=== PATIENT | male | born 1995 | race Caucasian/White ===

== ENCOUNTER 2023-04-10 02:09 | Observation (INO) | payer OTHER ==
[2023-04-10 03:04] LABS: Basophils % (A) 0 %; Eosinophils # (A) 0.1 k/uL (0-0.7); Eosinophils % (A) 1 %; HCT 43.4 % (39.0-53.0); Lymphocytes # (A) 1.1 k/uL (1.0-4.8); Lymphocytes % (A) 9 %; MCH 28.6 pg (25.0-35.0); MCHC 34.7 g/dL (31.0-37.0); MCV 82.5 fL (80.0-100.0); Mean Platelet Volume 7.9; Monocytes # (A) 1.4 k/uL (0-1.0); Monocytes % (A) 11 %; Neutrophils % (A) 79 %; Platelet Count 217 k/uL (150-450); RBC 5.26 m/uL (4.30-5.90); RDW 12.8 % (11.5-15.5); WBC 12.8 k/uL (3.8-10.6)
--- NOTE | 2023-04-10 03:08 | ED ---
General Adult HPI - General Source: EMS Mode of arrival: EMS <Binh Bagley - Last Filed: 04/10/23 04:04> <Paul Nicholson - Last Filed: 04/10/23 08:44> - General Chief complaint: Overdose Stated complaint: Overdose Time Seen by Provider: 04/10/23 02:24 - History of Present Illness Initial comments: 27-year-old male with a past medical history significant for anxiety and depression presenting to the ED with a chief complaint of overdose. Per patient, took approximately 20 Cymbalta at 10 PM. Alerted his mother at approximately 12 AM. Per mother, shortly after this patient appeared to have seizure-like activity which lasted approximately a minute. As of now patient reports feeling fatigued. Denies chest pain, shortness of breath, palpitations, tinnitus, abdominal pain, nausea, vomiting. No other complaints at this time. Patient took approximately 20. His dosage is 60 mg. (Binh Bagley) - Related Data Allergies Allergy/AdvReac Type Severity Reaction Status Date / Time No Known Allergies Allergy Verified 11/10/22 14:12 Review of Systems ROS Other: All systems not noted in ROS Statement are negative. <Binh Bagley - Last Filed: 04/10/23 04:04> ROS Other: All systems not noted in ROS Statement are negative. <Paul Nicholson - Last Filed: 04/10/23 08:44> ROS Statement: Those systems with pertinent positive or pertinent negative responses have been documented in the HPI. Past Medical History Past Medical History: No Reported History History of Any Multi-Drug Resistant Organisms: None Reported Past Surgical History: No Surgical Hx Reported Past Psychological History: No Psychological Hx Reported Smoking Status: Never smoker Past Alcohol Use History: None Reported Past Drug Use History: Marijuana <Binh Bagley - Last Filed: 04/10/23 04:04> General Exam General appearance: alert, in no apparent distress Eye exam: Present: PERRL ENT exam: Present: other (Airway patent) Neck exam: Present: normal inspection, other Respiratory exam: Present: normal lung sounds bilaterally Cardiovascular Exam: Present: tachycardia GI/Abdominal exam: Present: soft (No tenderness to palpation. No rebound guarding or rigidity.) Neurological exam: Present: alert, oriented X3 Skin exam: Present: warm, dry <Binh Bagley Last Filed: 04/10/23 04:04> Course Vital Signs 04/10/23 04/10/23 04/10/23 02:11 03:00 04:30 Temperature 97.4 F L Pulse Rate 131 H 104 H 112 H Respiratory 18 20 17 Rate Blood Pressure 107/51 105/62 108/71 O2 Sat by Pulse 94 L 98 95 Oximetry 04/10/23 04/10/23 04/10/23 05:00 05:30 06:00 Temperature Pulse Rate 108 H 98 105 H Respiratory 18 16 17 Rate Blood Pressure 123/71 112/74 123/79 O2 Sat by Pulse 96 96 96 Oximetry Medical Decision Making - Lab Data Result diagrams: 04/10/23 02:49 04/10/23 02:49 <Binh Bagley - Last Filed: 04/10/23 04:04> - Lab Data Result diagrams: 04/10/23 02:49 04/10/23 02:49 <Paul Nicholson - Last Filed: 04/10/23 08:44> - Medical Decision Making Was pt. sent in by a medical professional or institution (, PA, TRANSFUSION NURSE, urgent care, hospital, or shelter...) When possible be specific @ -No Did you speak to anyone other than the patient for history (EMS, parent, family, police, friend...)? What history was obtained from this source @ -Spoke to both patient and family for history. For further details please see HPI. Did you review nursing and triage notes (agree or disagree)? Why? @ -I reviewed and agree with nursing and triage notes Were old charts reviewed (outside hosp., previous admission, EMS record, old EKG, old radiological studies, urgent care reports/EKG's, shelter records)? Report findings @ -No old charts were reviewed Differential Diagnosis (chest pain, altered mental status, abdominal pain women, abdominal pain men, vaginal bleeding, weakness, fever, dyspnea, syncope, headache, dizziness, GI bleed, back pain, seizure, CVA, palpatations, mental health, musculoskeletal)? @ -Differential Mental Health Depression, anxiety, bipolar, psychosis, schizophrenia, borderline personality, situational depression, adjustment disorder, behavioral disorder, brain tumor, malingering, substance abuse, encephalopathy, medication reaction, dementia, hypothyroidism, degenerative neurologic disorder, lupus.... This is not meant to be all-inclusive list EKG interpreted by me (3pts min.). @ -As above X-rays interpreted by me (1pt min.). @ -None done CT interpreted by me (1pt min.). @ -None done U/S interpreted by me (1pt. min.). @ -None done What testing was considered but not performed or refused? (CT, X-rays, U/S, labs)? Why? @ -None What meds were considered but not given or refused? Why? @ -None Did you discuss the management of the patient with other professionals (professionals i.e. , PA, TRANSFUSION NURSE, lab, RT, psych nurse, social welfare research worker, market relationship manager, teacher, [place] police officer, geriatric case manager)? Give summary @ -Discussed with poison control. Advised to expect nausea vomiting tachycardia and possible seizures. After discussing laboratory results obtained at this time report no need for additional testing at this time unless patient has any changes. Advising monitoring for 6 to 8 hours from time of ingestion. Was smoking cessation discussed for >3mins.? @ -No Was critical care preformed (if so, how long)? @ -No Were there social determinants of health that impacted care today? How? (Homelessness, low income, unemployed, alcoholism, drug addiction, transportation, low edu. Level, literacy, decrease access to med. care, halfway, rehab)? @ -No Was there de-escalation of care discussed even if they declined (Discuss DNR or withdrawal of care, Hospice)? DNR status @ -No What co-morbidities impacted this encounter? (DM, HTN, Smoking, COPD, CAD, Cancer, CVA, ARF, Chemo, Hep., AIDS, mental health diagnosis, sleep apnea, morbid obesity)? @ -Anxiety/depression Was patient admitted / discharged? Hospital course, mention meds given and rout e, prescriptions, significant lab abnormalities, going to OR and other pertinent info. @ -Admission 27-year-old male presents to the ED status post ingestion of approximately twenty 60 mg duloxetine at 10 PM. Laboratory studies reviewed showing a elevated white blood cell count at 12.8. Chemistry panel largely unremarkable. Salicylate less than 1, acetaminophen less than 10, serum alcohol less than 10. Urine drug screen pending at this time. After discussion with poison control recommend observation 6 to 8 hours after ingestion. EKG at this time shows a sinus tachycardia with nonspecific changes. On exam patient is somnolent however arousable and answers questions appropriately. Airway patent. Patient will be admitted with consult to psychiatry. Undiagnosed new problem with uncertain prognosis? @ -No Drug Therapy requiring intensive monitoring for toxicity (Heparin, Nitro, Insulin, Cardizem)? @ -No Were any procedures done? @ -No Diagnosis/symptom? @ -Duloxetine overdose Acute, or Chronic, or Acute on Chronic? @ -Acute Uncomplicated (without systemic symptoms) or Complicated (systemic symptoms)? @ -Complicated Side effects of treatment? @ -No Exacerbation, Progression, or Severe Exacerbation? @ -No Poses a threat to life or bodily function? How? (Chest pain, [place], [place], pneumonia, PE, COPD, DKA, ARF, appy, cholecystitis, CVA, Diverticulitis, Homicidal, Suicidal, threat to staff... and all critical care pts) @ -Possibly, overdose and suicidal ideation (Binh Bagley) - Lab Data Lab Results 04/10/23 04/10/23 Range/Units 02:49 02:49 WBC 12.8 H (3.8-10.6) k/uL RBC 5.26 (4.30-5.90) m/uL Hgb 15.0 (13.0-17.5) gm/dL Hct 43.4 (39.0-53.0) % MCV 82.5 (80.0-100.0) fL MCH 28.6 (25.0-35.0) pg MCHC 34.7 (31.0-37.0) g/dL RDW 12.8 (11.5-15.5) % Plt Count 217 (150-450) k/uL MPV 7.9 Neutrophils % 79 % Lymphocytes % 9 % Monocytes % 11 % Eosinophils % 1 % Basophils % 0 % Neutrophils # 10.0 H (1.3-7.7) k/uL Lymphocytes # 1.1 (1.0-4.8) k/uL Monocytes # 1.4 H (0-1.0) k/uL Eosinophils # 0.1 (0-0.7) k/uL Basophils # 0.0 (0-0.2) k/uL Sodium 136 L (137-145) mmol/L Potassium 3.8 (3.5-5.1) mmol/L Chloride 107 (98-107) mmol/L Carbon Dioxide 19 L (22-30) mmol/L Anion Gap 10 mmol/L BUN 12 (9-20) mg/dL Creatinine 0.99 (0.66-1.25) mg/dL Est GFR (CKD-EPI)AfAm >90 (>60 ml/min/1.73 sqM) Est GFR (CKD-EPI)NonAf >90 (>60 ml/min/1.73 sqM) Glucose 153 H (74-99) mg/dL Calcium 8.7 (8.4-10.2) mg/dL Total Bilirubin 0.5 (0.2-1.3) mg/dL AST 36 (17-59) U/L ALT 57 H (4-49) U/L Alkaline Phosphatase 50 (38-126) U/L Total Protein 6.5 (6.3-8.2) g/dL Albumin 3.8 (3.5-5.0) g/dL Salicylates <1.0 mg/dL Acetaminophen <10.0 ug/mL Serum Alcohol <10 mg/dL - EKG Data EKG Comments: EKG shows a sinus tach at [address] and T wave changes. WV 150, QRS 96, QT/QTc 351/425. (Binh Bagley) Disposition Time of Disposition: 04:04 <Binh Bagley - Last Filed: 04/10/23 04:04> <Paul Nicholson - Last Filed: 04/10/23 08:44> Clinical Impression: Overdose, Suicidal ideation Disposition: ADMITTED IP TO THIS HOSP Condition: Fair Referrals: None,Stated [REFERRING] - 1-2 days
[2023-04-10 03:15] LABS: ALT 57 U/L (4-49); AST 36 U/L (17-59); Acetaminophen <10.0 ug/mL; African American GFR (CKD) >90 (>60 ml/min/1.73 sqM); Albumin 3.8 g/dL (3.5-5.0); Alcohol <10 mg/dL; Alkaline Phosphatase 50 U/L (38-126); Anion Gap 10 mmol/L; Blood Urea Nitrogen 12 mg/dL (9-20); Calcium 8.7 mg/dL (8.4-10.2); Carbon Dioxide 19 mmol/L (22-30); Chloride 107 mmol/L (98-107); Glucose 153 mg/dL (74-99); Non-African American GFR(CKD) >90 (>60 ml/min/1.73 sqM); Potassium 3.8 mmol/L (3.5-5.1); Salicylate <1.0 mg/dL; Sodium 136 mmol/L (137-145); Total Bilirubin 0.5 mg/dL (0.2-1.3); Total Protein 6.5 g/dL (6.3-8.2)
[2023-04-10] MEDS: SODIUM CHLORIDE 0.9% 1,000 ML IV STA (03:41)
[2023-04-10] MEDS: levETIRAcetam 500 MG TAB PO STA (03:41)
[2023-04-10] MEDS ORDERED: NALOXONE 0.4 MG/ML 1 ML VIAL IV PRN (04:31)
[2023-04-10] MEDS ORDERED: ONDANSETRON 4 MG/2 ML VIAL IVP PRN (04:31)
[2023-04-10 09:04] LABS: Appearance,Urine Clear (Clear); Bilirubin,Urine Negative (Negative); Blood,Urine Negative (Negative); Color,Urine Colorless; Glucose,Urine (UA) 1+ (Negative); Ketones,Urine Negative (Negative); Leukocyte Esterase,Urine Negative (Negative); Nitrite,Urine Negative (Negative); PH, Urine 5.5 (5.0-8.0); Protein,Urine Trace (Negative); Specific Gravity,Urine 1.015 (1.001-1.035); Urobilinogen,Urine <2.0 mg/dL (<2.0)
[2023-04-10 09:26] LABS: Amphetamine Screen,Urine Not Detected (NotDetected); Barbiturate Screen,Urine Not Detected (NotDetected); Benzodiazepines Screen,Urine Not Detected (NotDetected); Cocaine Screen,Urine Not Detected (NotDetected); Methadone Screen, Urine Not Detected (NotDetected); Opiate Screen,Urine Not Detected (NotDetected); Oxycodone Screen, Urine Not Detected (NotDetected); Phencyclidine Screen,Urine Not Detected (NotDetected); Tricyclic Antidepressant,Urine Not Detected (NotDetected); Urn Cannabinoid Scrn Detected (NotDetected)
--- NOTE | 2023-04-10 14:39 | P.HPIM ---
History of Present Illness Patient is 27-year-old male is admitted for suicidal ideation and duloxetine overdose, took 20 pills of duloxetine. Patient presently does not have any QT prolongation at this time patient took this medication around midnight April 10, 2023 patient apparently had a seizure-like activity which lasted for a minute after that denied any tinnitus. Urine drug screen is positive for marijuana. Patient had sinus tachycardia on admission which resolved at this time REVIEW OF SYSTEMS: CONSTITUTIONAL: No fever, no malaise, no fatigue. HEENT: No recent visual problems or hearing problems. Denied any sore throat. CARDIOVASCULAR: No chest pain, orthopnea, PND, no palpitations, no syncope. PULMONARY: No shortness of breath, no cough, no hemoptysis. GASTROINTESTINAL: No diarrhea, no nausea, no vomiting, no abdominal pain. NEUROLOGICAL: No headaches, no weakness, no numbness. HEMATOLOGICAL: Denies any bleeding or petechiae. GENITOURINARY: Denies any burning micturition, frequency, or urgency. MUSCULOSKELETAL/RHEUMATOLOGICAL: Denies any joint pain, swelling, or any muscle pain. ENDOCRINE: Denies any polyuria or polydipsia. The rest of the 14-point review of systems is negative. PHYSICAL EXAMINATION: GENERAL: The patient is alert and oriented x3, not in any acute distress. Well developed, well nourished. HEENT: Pupils are round and equally reacting to light. EOMI. No scleral icterus. No conjunctival pallor. Normocephalic, atraumatic. No pharyngeal erythema. No thyromegaly. CARDIOVASCULAR: S1 and S2 present. No murmurs, rubs, or gallops. PULMONARY: Chest is clear to auscultation, no wheezing or crackles. ABDOMEN: Soft, nontender, nondistended, normoactive bowel sounds. No palpable organomegaly. MUSCULOSKELETAL: No joint swelling or deformity. EXTREMITIES: No cyanosis, clubbing, or pedal edema. NEUROLOGICAL: Gross neurological examination did not reveal any focal deficits. SKIN: No rashes. Assessment and plan -Duloxetine overdose will be monitored overnight for any heart rhythm abno rmalities. Patient is alert awake at this time no evidence of seizures at this time -Leukocytosis reactive secondary to drug overdose -Depression suicidal ideation patient will need a sitter and psychiatry evaluation DVT prophylaxis: Early ambulation Past Medical History Past Medical History: No Reported History History of Any Multi-Drug Resistant Organisms: None Reported Past Surgical History: No Surgical Hx Reported Past Psychological History: No Psychological Hx Reported Smoking Status: Never smoker Past Alcohol Use History: None Reported Past Drug Use History: Marijuana Medications and Allergies Home Medications Medication Instructions Recorded Confirmed Type No Known Home Medications 04/10/23 04/10/23 History Allergies Allergy/AdvReac Type Severity Reaction Status Date / Time No Known Allergies Allergy Verified 04/10/23 10:42 Physical Exam Vitals: Vital Signs Temp Pulse Resp BP Pulse Ox 04/10/23 12:00 92 18 113/75 97 04/10/23 10:18 89 18 107/71 98 04/10/23 06:00 105 H 17 123/79 96 04/10/23 05:30 98 16 112/74 96 04/10/23 05:00 108 H 18 123/71 96 04/10/23 04:30 112 H 17 108/71 95 04/10/23 03:00 104 H 20 105/62 98 04/10/23 02:11 97.4 F L 131 H 18 107/51 94 L Intake and Output 04/09/23 04/10/23 04/10/23 22:59 06:59 14:59 Other: Weight 120.202 kg Results CBC & Chem 7: 04/10/23 02:49 04/10/23 02:49 Labs: Abnormal Lab Results - Last 24 Hours (Table) 04/10/23 04/10/23 04/10/23 Range/Units 02:49 02:49 08:30 WBC 12.8 H (3.8-10.6) k/uL Neutrophils # 10.0 H (1.3-7.7) k/uL Monocytes # 1.4 H (0-1.0) k/uL Sodium 136 L (137-145) mmol/L Carbon Dioxide 19 L (22-30) mmol/L Glucose 153 H (74-99) mg/dL ALT 57 H (4-49) U/L Urine Protein Trace H (Negative) Urine Glucose (UA) 1+ H (Negative) U Marijuana (THC) Screen Detected H (NotDetected)
--- NOTE | 2023-04-10 22:25 | P.CN ---
Psychiatric Consult - . Consult date: 04/10/23 Consult:: Reason for Consult/Chief Complaint: Psychiatric evaluation for a patient who overdosed on Cymbalta. History of Present Illness: The patient is a 27-year-old male with a psychiatric history of depression and anxiety. He was brought to the hospital after overdosing on Cymbalta. The evaluation took place while he was lying in bed in the emergency department at [facility]. The patient reported that he overdosed on Cymb april around midnight in a suicide attempt, stating, "I was excited to be ." The patient expressed feelings of depression and sadness throughout his life but noted a worsening of his depression over the last month, which he attributes to financial problems. He endorsed symptoms of isolation, hopelessness, and intermittent suicidal ideation. The patient had been consuming cannabis gummies in an attempt to alleviate depression and anxiety, which he claims altered his perception and fueled a fascination with that began approximately six months ago. He was terminated from his last job, exacerbating feelings of hopelessness and suicidal ideation. The patient was diagnosed with depression three years ago, and his most recent antidepressant medication was Cymbalta. He reported ingesting approximately 20 pills of Cymbalta, either 50mg or 60mg. Additionally, he reported experiencing sleep disturbances, including difficulty falling and staying asleep or sleeping for extended periods, as well as a significant decrease in appetite. Regarding anxiety, the patient reported severe unexplained worry, racing thoughts, and panic attacks accompanied by chest discomfort and a rapid heartbe at. He described episodes of elevated mood, increased energy levels, and excitement over minor matters, along with decreased need for sleep, but he could not recall these symptoms lasting more than a few hours or a maximum of one day. The patient denied psychotic symptoms, including hallucinations, paranoid ideation, or delusions, and he reported no instances of self-injurious behavior. When asked about previous suicide attempts, the patient responded, "I feel that I have, but I don't remember specifically." Past psychiatric history: Psychiatric diagnosis: Depression, and anxiety disorders. Previous psychiatric hospitalizations: None reported. Previous suicidal attempts: "I feel that I have, but I don't remember specifically." Previous/ current outpatient psychiatric treatment: None. He reported was getting prescription for antidepressant from his PCP. Substance use history: the patient reports ingesting marijuana games regularly. He occasionally smokes marijuana. He denies drinking alcohol or smoking cigarettes. Social/ Developmental History: The patient currently lives with his mother, grandmother, and stepfather. He's currently unemployed after he lost his job six months ago. He used to do factory work. He completed high school diploma. Patient has never been and has no children. Family Psychiatric History: Depression and anxiety and depression run at both sides of his family. Paternal grandfather committed suicide. Maternal uncle has substance use disorder problems. Mental Status Examination: Appearance: Appears stated age, disheveled, above average body built, with long alfaro. Gait/ posture: Gait was not assessed. Attitude and Behavior: Not fully Engaged, partially cooperative, poor eye contact during course of interview. Motor Activity: Decreased psychomotor activity. Speech: Slow rate, normal rhythm, articulation, and prosody. None pressured. Mood: " depressed Affect: Restricted Thought form: linear, and relevant, not incoherent and no clang association. Thought content: Bizarre but no delusions, reported suicidal ideation, Denies homicidal thoughts, intentions, or plans. Perception: Denies any auditory/ visual or tactile hallucinations. Attention: No impairment. Orientation: Oriented to time, place, person, and situation. Insight & Judgment: Poor Impulse control: poor Assessment: Major depressive disorder, recurrent, with mixed features. Ruled out bipolar disorder. Recommendation: Disposition/Follow-up: Addressed and ensured patient's safety, patient does meet the criteria for psychiatric hospitalization. Patient has had a suicidal attempt last night, and he is actively suicidal and unpredictable. Please transfer the patient to inpatient psychiatric level of care after achieving medical stabilization. Place the patient on 1:1 observation for safety. Medication management: Start the patient on Abilify 5 milligrams daily for mood stabilization. Brief supportive psychotherapy and psychoeducation was provided to the patient. Discussed the treatment plan with the requesting physician/service. Thank you for permitting me to assist in this patient's treatment. Please call the psychiatry department if you have any questions or need further help with this case.
[2023-04-11 11:25] LABS: ALT 54 U/L (4-49); AST 30 U/L (17-59); African American GFR (CKD) >90 (>60 ml/min/1.73 sqM); Albumin 3.4 g/dL (3.5-5.0); Albumin/Globulin Ratio 1.3; Alkaline Phosphatase 46 U/L (38-126); Anion Gap 4 mmol/L; Blood Urea Nitrogen 14 mg/dL (9-20); Calcium 8.7 mg/dL (8.4-10.2); Carbon Dioxide 28 mmol/L (22-30); Chloride 106 mmol/L (98-107); Globulin 2.7 g/dL; Glucose 94 mg/dL (74-99); Non-African American GFR(CKD) >90 (>60 ml/min/1.73 sqM); Potassium 3.9 mmol/L (3.5-5.1); Sodium 138 mmol/L (137-145); Total Bilirubin 0.5 mg/dL (0.2-1.3); Total Protein 6.1 g/dL (6.3-8.2)
--- NOTE | 2023-04-11 12:47 | P.DS ---
Providers Date of admission: 04/10/23 08:44 Attending physician: Adriano Madrigal MD Consults: 04/10/23 04:31 Consult Physician Urgent Consulting Provider: Luci Stringer Consult Reason/Comments: Dulxetine OD Do you want consulting provider notified?: Yes Primary care physician: Awilda Nicholson Hospital Course: Final Diagnosis -Duloxetine overdose, monitored and medically stable for transfer to [facility] hiatry unit -Leukocytosis reactive secondary to drug overdose -Depression suicidal ideation patient to transfer to psychiatric unit and will need outpatient [facility] referral on discharge. Discharge Disposition Patient is stable for discharge to inpatient mental health unit. Patient will need to establish care with a PCP outpatient. Hospital course This is a pleasant 27-year-old male who was admitted for depression and suicidal ideation patient overdosed on duloxetine states that he took about 20 pills. Patient was monitored he does not have any cardiac arrhythmias or QT prolongation. Patient apparently did have a seizure-like activity that lasted for a minute was brought into the hospital for evaluation. He has had no further seizure-like activity. He had a urine drug toxicology which was positive for marijuana. Patient was mildly tachycardic on admission which has improved. Also had mild leukocytosis which was likely due to the drug overdose. Denying any chest pain or shortness of breath no nausea vomiting diarrhea no tinnitus no focal neurological deficits. He is alert x 3 he has been up ambulating around the room. He has been maintained with a one-to-one sitter and has been evaluated by the psychiatrist who is recommending inpatient mental health evaluation and treatment and patient is cleared medically for transfer to the mental health unit. Please see medication reconciliation for list of current medication. Thank you for allowing us to participate in care of this patient. The impression and plan of care has been dictated by Caity Guzman Nurse Practitioner as directed. Dr. Ofe MD I have performed a history and physical examination and medical decision making of this patient, discussed the same with the dictator, and agree with the dictators assessment and plan as written, documented as a scribe. Based on total visit time, I have performed more than 50% of this visit. Patient Condition at Discharge: Stable Plan - Discharge Summary New Discharge Prescriptions: No Action No Known Home Medications Discharge Medication List No Known Home Medications 04/10/23 [History] Follow up Appointment(s)/Referral(s): None,Stated [REFERRING] - 1-2 days Activity/Diet/Wound Care/Special Instructions: Patient cleared for discharge to [facility] Discharge Disposition: TRANSFER TO PSYCH HOSP/UNIT
[2023-04-12 08:36] VITALS: BP 118/72; PULSE 61; RESP 17; TEMP 97.4
--- NOTE | 2023-04-12 10:51 | P.PN ---
Progress Note - Text Progress Note Date: 04/12/23 No overnight events. Alert and oriented x 3. Ambulating, tolerating exertion well. Denies lightheadedness dizziness or focal deficits. Denies sweats or chills. Denies chest pain, palpitations or increase in shortness of breath. Denies seizure activity. Denies nausea vomiting or diarrhea. Denies abdominal pain. Suicide precautions maintain with sitter at bedside. Stable, medically cleared for discharge to day to the inpatient mental health unit. Final Diagnosis: -Duloxetine overdose, monitored and medically stable for transfer to IP psychiatry unit -Leukocytosis reactive secondary to drug overdose -Depression suicidal ideation patient to transfer to IP psychiatric unit and wi ll need outpatient [facility] referral on discharge. The impression and plan of care has been dictated as directed. : I performed a history and examination of this patient, discussed the same with the dictator. I agree with the dictator's note ,documented as a scribe. Any additional findings or plans will be noted.
== END 2023-04-12 16:23 ==
LOC: EC 02:09 → 4SSUR 08:44 → 5NMEDONC 17:01
PROVIDERS: ADMIT Internal Medicine; ATTEND Internal Medicine
DX: T50.901A Poisoning by unspecified drugs, medicaments and biological substances, accidental (unintentional), initial encounter (principal); T43.212A Poisoning by selective serotonin and norepinephrine reuptake inhibitors, intentional self-harm, initial encounter; R53.83 Other fatigue; R00.0 Tachycardia, unspecified; D72.829 Elevated white blood cell count, unspecified; F32.A Depression, unspecified; R45.851 Suicidal ideations; Z11.52 Encounter for screening for COVID-19
CPT/HCPCS: 96360; 96361 ×2; 82075; 99285; 36415; 93005; 80053 ×2; 85025; 81003; 80306; 80143; 80320; 87635; 80179; G0378 ×4